=== PATIENT | female | born 1955 | race Caucasian/White ===

== ENCOUNTER 2022-10-15 11:04 | Emergency (ER) | payer MEDICARE ==
[~2022-10-15] VITALS: Ht 165.1 cm; Wt 86.2 kg
[2022-10-15 11:57] VITALS: BP 149/72
[2022-10-15] MEDS ORDERED: FLEXERIL5 M1 PO (12:42)
[2022-10-15 12:48] VITALS: BP 149/72
== END 2022-10-15 12:54 | disposition home or self-care (01) ==
LOC: ED 11:04
DX: Z45.2 Encounter for adjustment and management of vascular access device (principal); K51.90 Ulcerative colitis, unspecified, without complications; Z93.3 Colostomy status; Z79.899 Other long term (current) drug therapy; Z90.49 Acquired absence of other specified parts of digestive tract